=== PATIENT | female | born 1970 | race Caucasian/White ===

== ENCOUNTER 2020-12-18 06:07 | Outpatient (CLI) | payer MEDICAID ==
[~2020-12-18] VITALS: Ht 167.7 cm; Wt 91.0 kg
[2020-12-18] MEDS ORDERED: LISI10TA25 PO (08:41)
[2020-12-18] MEDS ORDERED: MV-M1TAB20 PO (08:41)
[2020-12-18] MEDS ORDERED: CITA40TA11 PO (08:41)
== END 2020-12-18 10:05 | disposition home or self-care (01) ==
LOC: PREOP 06:07
PROVIDERS: ATTEND Surgery
DX: Z01.818 Encounter for other preprocedural examination (principal)

== ENCOUNTER 2020-12-25 12:01 | Day surgery (SDC) | payer MEDICAID ==
[~2020-12-25] VITALS: Ht 165 cm; Wt 91.0 kg
[~2020-12-25 12:01] MED LIST: CITA40TA11 PO; LISI10TA25 PO; MV-M1TAB20 PO
[2020-12-25] MEDS ORDERED: LACTATED RINGERS 1,000 ML IV ONE (12:14)
[2020-12-25] MEDS ORDERED: LACTATED RINGERS 1,000 ML IV STA (12:33)
[2020-12-25 12:52] VITALS: BP 126/90
[2020-12-25] MEDS ORDERED: PROPOFOL INJECTION 50 ML IV ONE (14:16)
[2020-12-25] MEDS ORDERED: MIDAZOLAM 2 MG/2 ML (VERSED) VIAL ONE (14:23)
[2020-12-25 14:45] VITALS: BP 119/74
[2020-12-25 14:50] VITALS: BP 117/74
[2020-12-25 14:55] VITALS: BP 138/79
--- NOTE | 2020-12-25 14:55 | Anesthesia-General Post-Op ---
MAC Patient Condition Mental Status/LOC: Same as Preop Cardiovascular: Satisfactory Nausea/Vomiting: Absent Respiratory: Satisfactory Pain: Controlled Complications: Absent Post Op Complications Complications None Follow Up Care/Instructions Patient Instructions None needed. Anesthesiology Discharge Order Discharge Order Patient is doing well, no complaints, stable vital signs, no apparent adverse anesthesia problems. No complications reported per nursing. TERA CHAPARRO CRNA Dec 25, 2020 14:55
[2020-12-25 15:00] VITALS: BP 138/79
--- NOTE | 2020-12-25 15:12 | Progress Note-Post Operative ---
Post-Operative Progess Note Surgeon (s)/Box Toe Stitcher (s) Surgeon MARCUS GARCIA DO Box Toe Stitcher: CUONG Oneil Pre-Operative Diagnosis screening colon Post-Operative Diagnosis polyp diverticula int hemorrhoids Procedure & Operative Findings Date of Procedure 12/25/20 Procedure Performed/Findings Colonoscopy with snare polypectomy PROCEDURE NOTE: After informed consent was obtained, the patient was brought to the endoscopy suite, placed in bed in left lateral decubitus position. She was administered IV sedation by the MIXER OPERATOR TABLETS who then monitored her vitals the entire time, heart rate, blood pressure and pulse ox and the scope was inserted, pushed all the way to about 150 cm and pushed into the cecum, took a picture of appendiceal orifice and noted the ileo-cecal valve. Then slowly withdrew the scope insufflating to look circumferentially at the mcnally. Starting in the cecum, up the ascending colon to the hepatic flexure, then down the transverse colon to the splenic flexure, into the descending colon. There were some diverticula seen on the right side but a polyp was found in the descending colon and it was removed by snare polypectomy. Finally continued down the sigmoid and then into the rectal vault and retroflexed the scope and took a picture of the internal hemorrhoids. The patient tolerated the procedure. She was recovered in the endoscopy suite. Anesthesia Type IV Sedation by MIXER OPERATOR TABLETS Estimated Blood Loss Estimated blood loss (mL): scant Specimens/Packing Specimens Removed descending colon polyp MARCUS GARCIA DO Dec 25, 2020 15:12
--- NOTE | 2020-12-25 15:13 | Endoscopy Discharge Instruct ---
Endo Procedure/Findings Findings 1.: Polyp 2.: Diverticulosis 3.: Internal Hemorrhoids Discharge Instructions - Activity: You might feel a little sleepy until tomorrow. This is due to the medicine you received to relax you. Until tomorrow, you should: NOT drive a car, operate machinery or power tools. NOT drink any alcoholic beverages. NOT make any important decisions or sign importortant papers. Do not return to work until tomorrow, unless otherwise instructed. Resume previous activities tomorrow. Diet: Start by taking liquids. If you tolerate liquids, advance to solid food. 1.: Colonscopy in 5 years Notify Physician - If you experience excessive bleeding, unusual abdominal pain, fever, or chest pain, contact your doctor immediately. MARCUS GARCIA DO Dec 25, 2020 15:13
[2020-12-25 15:30] VITALS: BP 137/79
== END 2020-12-25 15:40 ==
LOC: ENDO 12:01
PROVIDERS: ATTEND Surgery
DX: Z12.11 Encounter for screening for malignant neoplasm of colon (principal); D12.4 Benign neoplasm of descending colon; K57.30 Diverticulosis of large intestine without perforation or abscess without bleeding; K64.8 Other hemorrhoids; I10 Essential (primary) hypertension; F32.9 Major depressive disorder, single episode, unspecified; F41.9 Anxiety disorder, unspecified; Z87.891 Personal history of nicotine dependence; Z79.899 Other long term (current) drug therapy
CPT/HCPCS: 84703; 88305

== ENCOUNTER 2021-01-21 13:57 | Emergency (ER) | payer MEDICAID ==
[~2021-01-21] VITALS: Ht 167.7 cm; Wt 87.1 kg
[2021-01-21 14:00] VITALS: BP 120/78
--- NOTE | 2021-01-21 14:22 | ED Upper Extremity ---
General Stated Complaint: R FINGER LACERATION Source: patient Exam Limitations: no limitations (ASHWINI FAY APRN) History of Present Illness Date Seen by Provider: Jan 21, 2021 Time Seen by Provider: 14:19 Initial Comments to ER with laceration of the dorsal aspect of the right middle finger at the PIP joint. Tetanus is not up-to-date. This occurred from a piece of sharp glass while she was replacing a window at a new house she just bought Onset: just prior to arrival Severity: moderate Pain/Injury Location: right 3rd finger Method of Injury: direct blow (ASHWINI FAY APRN) Allergies and Home Medications Allergies Coded Allergies: No Known Allergies (Unverified Allergy, Unknown, 12/25/20) Home Medications Citalopram Hydrobromide 40 Mg Tablet, 40 MG PO DAILY, (Reported) Lisinopril 10 Mg Tablet, 10 MG PO DAILY, (Reported) Mv-Mn/Iron/FA/Herbal Cmplx#190 1 Each Tablet, 1 EACH PO DAILY, (Reported) Patient Home Medication List Home Medication List Reviewed: Yes (ASHWINI FAY APRN) Review of Systems Constitutional: see HPI EENTM: see HPI Respiratory: no symptoms reported Cardiovascular: no symptoms reported Genitourinary: no symptoms reported Musculoskeletal: no symptoms reported Skin: see HPI Psychiatric/Neurological: No Symptoms Reported (ASHWINI FAY APRN) Past Gsttbry-Xvuspp-Llgtbk Hx Seasonal Allergies Seasonal Allergies: No (ASHWINI FAY APRN) Past Medical History Orthopedic Respiratory: No Currently Using CPAP: No Cardiac: Yes Hypertension Neurological: No Genitourinary: No Gastrointestinal: No Musculoskeletal: No Endocrine: No HEENT: No Cancer: No Psychosocial: Yes Anxiety, Depression Integumentary: Yes Psoriasis Blood Disorders: No (ASHWINI FAY APRN) Physical Exam Vital Signs Vital Signs - First Documented 01/21/21 14:00 Temp 36.8 Pulse 83 Resp 18 B/P (MAP) 120/78 (92) Pulse Ox 97 O2 Delivery Room Air (MARIBELL GUILLEN MD) Vital Signs Capillary Refill : (ASHWINI FAY APRN) Height, Weight, BMI Height: '" Weight: lbs. oz. kg; 33.42 BMI Method: General Appearance: WD/WN, no apparent distress HEENT: PERRL/EOMI, normal ENT inspection Cardiovascular: regular rate, rhythm, no murmur Respiratory: no respiratory distress, no accessory muscle use Shoulder: normal inspection, non-tender Elbow/Forearm: normal inspection, non-tender Wrist: Yes normal inspection, Yes non-tender Hand: Right, laceration (1 cm laceration down to the extensor tendon on the dorsal aspect of the right middle finger at the PIP joint. There is a visible laceration through part of the extensor tendon though she retains extensor function.) Neurologic/Psychiatric: alert, normal mood/affect, oriented x 3 Skin: normal color, warm/dry (ASHWINI FAY APRN) Progress/Results/Core Measures Results/Orders Medications Given in ED Current Medications Medications Dose Ordered Sig/Good Route Start Time Stop Time Status Last Admin Dose Admin Diphtheria/ Tetanus/Acell Pertussis 0.5 ml ONCE ONCE IM 01/21/21 14:30 01/21/21 14:31 DC 01/21/21 14:38 0.5 ML (MARIBELL GUILLEN MD) Vital Signs/I&O 01/21/21 14:00 Temp 36.8 Pulse 83 Resp 18 B/P (MAP) 120/78 (92) Pulse Ox 97 O2 Delivery Room Air (MARIBELL GUILLEN MD) Departure Communication (Admissions) 1421-anesthetized locally with 1 mL of 1% lidocaine without epinephrine. Scrubbed with chlorhexidine/saline solution then irrigated with the same. The skin was then closed with 3 simple interrupted sutures size 5-0 Prolene. Covered with gauze. (ASHWINI FAY APRN) Impression Primary Impression: Finger laceration Disposition: 01 HOME, SELF-CARE Condition: Stable Departure-Patient Inst. Decision time for Depature: 14:21 (ASHWINI FAY APRN) Referrals: MANDEEP DAVIS DO (PCP) Primary Care Physician Patient Instructions: Laceration Repair With Stitches (DC) Add. Discharge Instructions: 1. Stitches out in 10 days. Follow-up with orthopedics to evaluate the extensor tendon which does appear to have a laceration through it though you have retained extensor tendon function. You can shower letting water run over this but do not soak it in water such as a bathtub hot tub or swimming pool until the stitches are out. ATTENDING PHYSICIAN NOTE: I was physically present as attending physician in the emergency department during the care of this patient, but I was not directly involved in the decision making or delivery of care for this patient. (MARIBELL GUILLEN MD) ASHWINI FAY APRN Jan 21, 2021 14:22 MARIBELL GUILLEN MD Jan 21, 2021 19:46
[2021-01-21] MEDS ORDERED: TETANUS,DIPTH,PERTUSS P/F (BOOSTRIX) 0.5 ML VIAL IM ONE (14:30)
== END 2021-01-21 14:40 | disposition home or self-care (01) ==
LOC: EDUNIT# 13:57 → ER 13:58
DX: S61.212A Laceration without foreign body of right middle finger without damage to nail, initial encounter (principal); I10 Essential (primary) hypertension; F41.9 Anxiety disorder, unspecified; F32.9 Major depressive disorder, single episode, unspecified; Z23 Encounter for immunization; Z79.899 Other long term (current) drug therapy; W25.XXXA Contact with sharp glass, initial encounter
CPT/HCPCS: 12001; 90715